=== PATIENT | female | born 1995 ===

== ENCOUNTER 2018-06-10 18:08 | Emergency (ER) | payer SELFPAY ==
[2018-06-10 18:09] VITALS: BMI 44.3
[2018-06-10 18:20] VITALS: RESP 18
--- NOTE | 2018-06-10 20:03 | ED PDOC ---
HPI: Abdomen Additional Complaint(s): 22 y/o morbidly obese female is c/o RLQ intermittent, sharp abdominal pain x 2-3 days, 8/10 that occurs with straining while defecating & 5-6 episodes of watery stools. She endorses one episode of nonbloody emesis today with some nausea. She also reports minimal dysuria, vaginal itching, erythema, and some swelling. She was seen at [facility] for dysuria, found to have UTI, and treated with macrobid 1 wk ago. She has one tablet remaining. Denies fever, chills, recent travel, sick contacts. PMH: HLD Meds: Macrobid 100mg BID x 7 Allergies: denies Surghx: denies Famhx: noncontributory Soch: denies <Coral Villatoro - Last Filed: 06/10/18 22:49> <Irma Shahid - Last Filed: 06/11/18 01:49> Chief Complaint (Nursing): Abdominal Pain Supervising Attending Note - Supervising Attending Note The Documented history was done by the: Physician Stripper Machine Operator The documented physical exam was done by the: Physician Stripper Machine Operator The documented procedures were done by the: Physician Stripper Machine Operator - Attestation: I have personally seen and examined this patient.: Yes I have fully participated in the care of the patient.: Yes I have reviewed all pertinent clinical information: Yes - Notes: Notes:: Pt with signs and systems consistent with UTI. Pt discharged home with Keflex. Pending urine culture. Will follow up with PMD. <Irma Shahid - Last Filed: 06/11/18 01:49> Past Medical History Vital Signs: Last Vital Signs Temp 97.8 F 06/10/18 18:18 Pulse 130 H 06/10/18 18:18 Resp 18 06/10/18 18:18 BP 152/90 H 06/10/18 18:18 Pulse Ox 97 06/10/18 18:18 - Medical History PMH: Hypercholesterolemia - Family History Family History: States: Unknown Family Hx <Coral Villatoro - Last Filed: 06/10/18 22:49> Vital Signs: Last Vital Signs Temp 98.6 F 06/10/18 23:30 Pulse 75 04/26/19 23:30 Resp 18 06/10/18 23:30 BP 145/85 06/10/18 23:30 Pulse Ox 99 06/10/18 23:30 <Irma Shahid - Last Filed: 06/11/18 01:49> - Home Medications Home Medications: Ambulatory Orders Medication Instructions Recorded Nitrofurantoin Monohyd/M-Cryst 100 mg PO BID #14 capsule 06/04/18 [Macrobid 100 mg Capsule] Nitrofurantoin Monohyd/M-Cryst 100 mg PO BID #14 capsule 06/04/18 [Macrobid 100 mg Capsule] Phenazopyridine [Pyridium] 200 mg PO TID #6 tab 06/08/18 Cephalexin [Keflex] 500 mg PO BID 5 Days #10 capsule 06/10/18 - Allergies Allergies/Adverse Reactions: Allergies Allergy/AdvReac Type Severity Reaction Status Date / Time No Known Allergies Allergy Verified 06/10/18 18:17 Physical Exam - Physical Exam Appears: Positive for: Non-toxic Head Exam: Positive for: ATRAUMATIC, NORMAL INSPECTION Skin: Positive for: Normal Color Eye Exam: Positive for: PERRL ENT: Negative for: Pharyngeal Erythema, Tonsillar Exudate Cardiovascular/Chest: Positive for: Regular Rate, Rhythm Respiratory: Negative for: Wheezing, Respiratory Distress Gastrointestinal/Abdominal: Positive for: Bowel Sounds, Soft. Negative for: Tenderness, Guarding, Rebound Back: Negative for: L CVA Tenderness, R CVA Tenderness Extremity: Negative for: Tenderness Lymphatic: Negative for: Adenopathy Neurological/Psych: Positive for: Awake, Alert <Coral Villatoro - Last Filed: 06/10/18 22:49> - Laboratory Results Result Diagrams: 06/10/18 21:03 06/10/18 21:03 - ECG O2 Sat by Pulse Oximetry: 97 <Coral Villatoro - Last Filed: 06/10/18 22:49> - Laboratory Results Result Diagrams: 06/10/18 21:03 06/10/18 21:03 Lab Results: Total Bilirubin 0.3 mg/dl (0.2-1.3) 06/10/18 21:03 AST 25 U/L (14-36) 06/10/18 21:03 ALT 47 U/L (9-52) 06/10/18 21:03 Alkaline Phosphatase 85 U/L (38-126) 06/10/18 21:03 Total Protein 7.7 G/DL (6.3-8.2) 06/10/18 21:03 Albumin 4.2 g/dL (3.5-5.0) 06/10/18 21:03 Globulin 3.5 gm/dL (2.2-3.9) 06/10/18 21:03 Albumin/Globulin Ratio 1.2 (1.0-2.1) 06/10/18 21:03 Urine Color Nini (YELLOW) 06/10/18 20:49 Urine Clarity Clear (Clear) 06/10/18 20:49 Urine pH 6.0 (5.0-8.0) 06/10/18 20:49 Ur Specific [place] 1.029 (1.003-1.030) 06/10/18 20:49 Urine Protein Negative mg/dL (NEGATIVE) 06/10/18 20:49 Urine Glucose (UA) Neg mg/dL (NEGATIVE) 06/10/18 20:49 Urine Ketones Negative mg/dL (NEGATIVE) 06/10/18 20:49 Urine Blood Negative (NEGATIVE) 06/10/18 20:49 Urine Nitrate Positive (NEGATIVE) H 06/10/18 20:49 Urine Bilirubin Negative (NEGATIVE) 06/10/18 20:49 Urine Urobilinogen 1.0 mg/dL (0.2-1.0) 06/10/18 20:49 Ur Leukocyte Esterase Neg Artie/uL (Negative) 06/10/18 20:49 Urine RBC (Auto) 3 /hpf (0-3) 06/10/18 20:49 Urine Microscopic WBC 2 /hpf (0-5) 06/10/18 20:49 Ur Squamous Epith Cells 6 /hpf (0-5) H 06/10/18 20:49 Urine Bacteria Rare (<OCC) 06/10/18 20:49 <Irma Shahid - Last Filed: 06/11/18 01:49> Disposition Comment: Please follow up with your primary medical doctor in 2-3 days. - Disposition Disposition: Routine/Home Disposition Time: 22:25 <Coral Villatoro - Last Filed: 06/10/18 22:49> <Irma Shahid - Last Filed: 06/11/18 01:49> - Clinical Impression Clinical Impression: UTI (urinary tract infection) - Disposition Referrals: [facility] [Provider Group] Condition: STABLE Prescriptions: Cephalexin [Keflex] 500 mg PO BID 5 Days #10 capsule Instructions: Urinary Tract Infections in Adults Forms: [facility] (Mozambican) Print Language: FAROESE
[2018-06-10 20:56] LABS: SQUAMOUS EPITHIAL 6 /hpf (0-5); URINE BACTERIA RARE (<OCC); URINE BILIRUBIN NEGATIVE (NEGATIVE); URINE BLOOD NEGATIVE (NEGATIVE); URINE CLARITY CLEAR (Clear); URINE COLOR AMBER (YELLOW); URINE GLUCOSE (UA) NEG (NEGATIVE); URINE LEUKOCYTE ESTERASE NEG Leu/uL (Negative); URINE PROTEIN NEGATIVE (NEGATIVE)
[2018-06-10 21:06] LABS: BASO # 0.1 K/uL (0.0-0.2); BASO % 1.1 % (0.0-2.0); EOS # 0.2 K/uL (0.0-0.7); EOS % 1.1 % (0.0-4.0); HEMOGLOBIN 13.3 g/dL (12.0-16.0); LYMPH # 4.3 K/uL (1.0-4.3); LYMPH % 32.6 % (20.0-40.0); MEAN CELL VOLUME 84.2 fl (81.0-99.0); MEAN CORPUSCULAR HEMOGLOBIN 27.5 pg (27.0-31.0); MEAN CORPUSCULAR HGB CONC 32.7 g/dL (33.0-37.0); MEAN PLATELET VOLUME 9.4 fl (7.2-11.7); MONO # 1.3 K/uL (0.0-0.8); MONO % 9.6 % (0.0-10.0); NEUT # 7.3 K/uL (1.8-7.0); NEUT % 55.6 % (50.0-75.0); NRBC % 0.1 % (0.0-0.0); RBC 4.82 Mil/uL (3.80-5.20); RED CELL DISTRIBUTION WIDTH 14.7 % (11.5-14.5); WHITE BLOOD COUNT 13.2 K/uL (4.8-10.8)
[2018-06-10] MEDS: Sodium Chloride 0.9% 1,000 ML IV SCH ×3 (21:06→22:41)
[2018-06-10 21:20] LABS: ALB/GLOB RATIO 1.2 (1.0-2.1)
[2018-06-10 21:26] LABS: ALBUMIN 4.2 g/dL (3.5-5.0); ALT/SGPT 47 U/L (9-52); AST/SGOT 25 U/L (14-36); BLOOD UREA NITROGEN 14 mg/dl (7-17); GFR NON-AFRICAN AMERICAN > 60
[2018-06-11 00:34] VITALS: BP 145/85; PULSE 75; TEMP 98.6; O2SAT 99
== END 2018-06-10 23:30 | disposition home or self-care (01) ==
LOC: H.ER 18:08
DX: N39.0 Urinary tract infection, site not specified (principal); E78.00 Pure hypercholesterolemia, unspecified
CPT/HCPCS: 80053; 81003; 81025; 85025; 87086; 96360; 99284; J7030